=== PATIENT | male | born 1935 | race Caucasian/White ===

== ENCOUNTER 2018-02-28 12:43 | Outpatient (CLI) | payer MEDICARE, BC ==
--- NOTE | 2018-02-28 13:55 | RAD ---
PA AND LATERAL OF THE CHEST: INDICATION: History of dyspnea. FINDINGS: There is increased airspace opacity within the region of the lingula suspicious for pneumonia. There is calcified granuloma in the right lung base. There is mild cardiomegaly. There is a mild wedge c ompression abnormality of T6 of undetermined chronicity. This is new from the comparison in 2013. IMPRESSION: 1. Lingular pneumonia. Radiographic followup to resolution recommended. 2. Compression abnormality of T6 of undetermined chronicity. This is new from a comparison in 2013. Recommend correlation with clinical exam for any pain in the upper to mid back. If clinically merritt cated, further evaluation with a bone scan may be helpful to document acuity. POS: [facility]
== END 2018-02-28 12:44 | disposition home or self-care (01) ==
LOC: RAD 12:43
PROVIDERS: ATTEND Internal Medicine Pulmonary Disease
DX: R06.00 Dyspnea, unspecified (principal); J18.9 Pneumonia, unspecified organism
CPT/HCPCS: 71046